=== PATIENT | male | born 1995 | race African-American/Black ===

== ENCOUNTER 2016-06-29 17:35 | Emergency (ER) | payer OTHER, MEDICAID ==
[~2016-06-29] VITALS: Ht 182.9 cm; Wt 72.3 kg
[2016-06-29] MEDS ORDERED: PERTUSS(ACELL),DIPH,TET VAC/PF 0.5 ML VIAL IM ONE (22:15)
[2016-06-29] MEDS ORDERED: BACITRACIN 0.9 GM PACKET OINTMENT TP ONE (22:15)
[2016-06-29] MEDS ORDERED: LIDOCAINE HCL 2% 5 ML JELLY TP ONE (22:15)
[2016-06-29 23:13] VITALS: BP 120/70
== END 2016-06-29 23:37 | disposition home or self-care (01) ==
LOC: EMS 17:38
DX: S01.91XA Laceration without foreign body of unspecified part of head, initial encounter (principal); W22.8XXA Striking against or struck by other objects, initial encounter; Y93.89 Activity, other specified; Y92.89 Other specified places as the place of occurrence of the external cause; Y99.8 Other external cause status
CPT/HCPCS: 12001; 90471; 90715; 99283